=== PATIENT | female | born 1970 | race Caucasian/White ===

== ENCOUNTER 2021-01-26 13:08 | Emergency (ER) | payer OTHER ==
[~2021-01-26] VITALS: Ht 160 cm; Wt 122.5 kg
[2021-01-26] MEDS ORDERED: BACTRIM DS TAB1 EACH PO (15:17)
[2021-01-26 15:24] VITALS: BP 125/91
== END 2021-01-26 15:25 | disposition home or self-care (01) ==
LOC: M.ERS 13:08
DX: L03.115 Cellulitis of right lower limb (principal); L02.611 Cutaneous abscess of right foot